=== PATIENT | female | born 1965 | race African-American/Black ===

== ENCOUNTER 2017-10-06 13:33 | Emergency (ER) | payer BC, OTHER ==
[~2017-10-06] VITALS: Ht 170.2 cm; Wt 62.1 kg
[2017-10-06] MEDS ORDERED: OMEPRAZOLE40 MG PO (13:46)
[2017-10-06] MEDS ORDERED: COZAAR 50 MG TA50 M2 PO (13:46)
[2017-10-06] MEDS ORDERED: TRIAMTERENE-HC1 EAC1 PO (13:46)
[2017-10-06] MEDS ORDERED: LOPRESSOR100 M1 PO (13:47)
[2017-10-06] MEDS ORDERED: IBUPROFEN 600600 M1 PO (15:09)
[2017-10-06 15:13] VITALS: BP 116/77
== END 2017-10-06 15:27 | disposition home or self-care (01) ==
LOC: ER 13:33
DX: M79.671 Pain in right foot (principal)

== ENCOUNTER → 2019-04-16 | Outpatient (CLI) | payer BC, OTHER ==
[~2019-04-16] MED LIST: COZAAR 50 MG TA50 M2 PO; IBUPROFEN 600600 M1 PO; LOPRESSOR100 M1 PO; OMEPRAZOLE40 MG PO; TRIAMTERENE-HC1 EAC1 PO
== END ==
LOC: RAD 08:07 → BC 17:06
DX: Z12.31 Encounter for screening mammogram for malignant neoplasm of breast (principal)

== ENCOUNTER → 2019-05-10 | Outpatient (CLI) | payer OTHER | LOC: CAT 10:09 | DX: Z13.6 Encounter for screening for cardiovascular disorders (principal); I25.10 Atherosclerotic heart disease of native coronary artery without angina pectoris; E78.00 Pure hypercholesterolemia, unspecified ==